=== PATIENT | male | born 2000 | race Caucasian/White ===

== ENCOUNTER 2020-08-03 23:25 | Emergency (ER) | payer OTHER ==
[~2020-08-03] VITALS: Ht 182.9 cm; Wt 90.9 kg
[2020-08-03 23:32] VITALS: TEMP 98.2
[2020-08-04 00:45] VITALS: PULSE 105
== END 2020-08-04 00:48 | disposition home or self-care (01) ==
LOC: COL.ER 23:25
DX: S51.811A Laceration without foreign body of right forearm, initial encounter (principal); F10.129 Alcohol abuse with intoxication, unspecified; W17.89XA Other fall from one level to another, initial encounter

== ENCOUNTER → 2020-08-14 | Outpatient (CLI) | payer OTHER ==
[2020-08-14 13:41] VITALS: BP 127/97; PULSE 91; TEMP 98.2
== END ==
LOC: COL.ER 13:22
DX: Z48.02 Encounter for removal of sutures (principal)